=== PATIENT | male | born 1985 | race Caucasian/White ===

== ENCOUNTER 2022-12-01 09:59 | Emergency (ER) | payer SELFPAY ==
[~2022-12-01] VITALS: Ht 180.3 cm; Wt 84.1 kg
[2022-12-01 10:30] VITALS: BP 110/80; PULSE 67; RESP 16; TEMP 98; O2SAT 100
== END 2022-12-01 12:30 | disposition left against medical advice (07) ==
LOC: ER 10:00
DX: K04.7 Periapical abscess without sinus (principal); Z53.21 Procedure and treatment not carried out due to patient leaving prior to being seen by health care provider
CPT/HCPCS: 99281